=== PATIENT | female | born 1940 | race Hispanic/Latino ===

== ENCOUNTER 2017-03-18 10:28 | Outpatient (CLI) | payer MEDICARE ==
--- NOTE | 2017-03-18 15:56 | Mammography Report ---
BILATERAL DIGITAL AUGMENTED SCREENING MAMMOGRAM with CAD: 03/18/17 10:28:00 CLINICAL: Routine screening. Breast cancer survivor status post left partial mastectomy and right breast implant augmentation. COMPARISON:03/16/16 FINDINGS: Screening views with and without implant displacement demonstrate a relatively fatty breast with scattered fibroglandular densities. The left breast is also fatty with scattered fibroglandular densities. No mass, architectural distortion or suspicious calcifications. Intact right subglandular implant. IMPRESSION: No mammographic evidence of malignancy. BI-RADS CATEGORY: 2 -- Benign RECOMMENDATION: Routine mammographic screening in one year. ACR BI-RADS MAMMOGRAPHIC CODES: 0 = Needs additional imaging evaluation; 1 = Negative; 2 = Benign; 3 = Probably benign; 4 = Suspicious; 5 = Malignant; 6 = Known biopsy-proven malignancy COMMENT: 1. Dense breast tissue, i.e., adenosis, fibrocystic changes, etc., may obscure an underlying neoplasm. 2. Approximately 10% of cancers are not detected with mammography. 3. A negative mammography report should not delay biopsy if a clinically suspicious mass is present. COMMENT: Patient follow-up letters are generated via our [employer] application.
== END 2017-03-18 10:29 | disposition home or self-care (01) ==
LOC: SPVWC 10:28
DX: Z12.31 Encounter for screening mammogram for malignant neoplasm of breast (principal); Z90.12 Acquired absence of left breast and nipple; Z98.82 Breast implant status
CPT/HCPCS: 77067; G0202

== ENCOUNTER 2018-03-21 10:48 | Outpatient (CLI) | payer MEDICARE ==
--- NOTE | 2018-03-21 15:59 | Mammography Report ---
BILATERAL DIGITAL AUGMENTED SCREENING MAMMOGRAM with CAD: 03/21/18 10:48:00 CLINICAL: History of breast cancer status post left partial mastectomy and status post right implant augmentation. COMPARISON:03/18/17 FINDINGS: Screening views with and without implant displacement of the right breast demonstrate a heterogeneously dense breast, which may obscure small masses. Intact subglandular right implant. The left breast is mostly fatty stable benign central posterior scar. No mass, architectural distortion or suspicious calcifications. IMPRESSION: No mammographic evidence of malignancy. BI-RADS CATEGORY: 2 -- Benign RECOMMENDATION: Routine mammographic screening in one year. ACR BI-RADS MAMMOGRAPHIC CODES: 0 = Needs additional imaging evaluation; 1 = Negative; 2 = Benign; 3 = Probably benign; 4 = Suspicious; 5 = Malignant; 6 = Known biopsy-proven malignancy COMMENT: 1. Dense breast tissue, i.e., adenosis, fibrocystic changes, etc., may obscure an underlying neoplasm. 2. Approximately 10% of cancers are not detected with mammography. 3. A negative mammography report should not delay biopsy if a clinically suspicious mass is present. COMMENT: Patient follow-up letters are generated via our [employer] application.
== END 2018-03-21 10:49 | disposition home or self-care (01) ==
LOC: SPVWC 10:48
DX: Z12.31 Encounter for screening mammogram for malignant neoplasm of breast (principal)
CPT/HCPCS: 77067

== ENCOUNTER 2019-03-22 11:04 | Outpatient (CLI) | payer MEDICARE ==
--- NOTE | 2019-03-22 13:13 | Mammography Report ---
DIGITAL SCREENING MAMMOGRAM WITH AUGMENTATION, WITH CAD, 03/22/2019 INDICATION: Screening. History of breast cancer status post left partial mastectomy. TECHNIQUE: Digital bilateral 2D mammography was obtained in the craniocaudal and mediolateral obliqu e projections. Right pushback views were also obtained. Computer-Aided Detection (CAD) analysis was u sed for interpretation of this study. COMPARISON: 03/16/2016 FINDINGS: Breast Density: There are scattered areas of fibroglandular density. There is no evidence of dominant mass, suspicious calcifications or architectural distortion in eithe r breast. There is a right silicone prepectoral breast implant present, unchanged in appearance. Post lumpectomy changes are again noted in the left breast. Overall, there has been no interval change in the appearance of the mammogram. IMPRESSION: No evidence of malignancy. BI-RADS Category 2: Benign. No mammographic evidence of malignancy. Recommend routine screening ma mmography in one year. A "normal" or negative report should not discourage follow up or biopsy of a clinically significant f inding. A written summary of these findings will be mailed to the patient. The patient will be entered into a mammography reporting system which will generate a reminder letter for the patient's next appointmen t at the appropriate interval. The [employer] recommends yearly mammograms starting at age 40 and continuing as l ephraim as a woman is in good health. Breast MRI is recommended for women with an approximate 20-25% or greater lifetime risk of breast cancer, including women with a strong family history of breast or ova saima cancer or who have been treated for Hodgkin's disease. Signer Name: Lauren Pond MD Signed: 03/22/2019 1:08 PM Workstation Name: [id number]
== END 2019-03-22 11:05 | disposition home or self-care (01) ==
LOC: SPVWC 11:04
PROVIDERS: ATTEND Family Medicine
DX: Z12.31 Encounter for screening mammogram for malignant neoplasm of breast (principal)
CPT/HCPCS: 77067

== ENCOUNTER 2020-03-26 10:21 | Outpatient (CLI) | payer MEDICARE ==
--- NOTE | 2020-03-26 13:20 | Mammography Report ---
BILATERAL DIGITAL SCREENING MAMMOGRAM WITH CAD HISTORY: Screening mammogram, status post left breast lumpectomy. TECHNIQUE: Routine digital mammographic imaging performed. This examination was interpreted with crystal shankar benefit of Computer-aided Detection analysis. COMPARISON: 03/22/2019, 03/21/2018, 03/18/2017, 03/16/2016, 03/15/2015. FINDINGS: Breast Density: scattered fibroglandular appearance of the breast tissue. Digital CC and MLO views demonstrate stable lumpectomy changes in the posterior left breast. Prepecto ral silicone implant is again noted within the right breast. No suspicious findings within either br east. IMPRESSION: No mammographic evidence of malignancy. If the clinical examination remains stable, recommend bilate ral mammogram in approximately one year. BIRADS 2: Benign Finding(s). FURTHER INFORMATION: According to the [employer], yearly mammograms are recommend ed starting at age 40 and continuing as long as a woman is in good health. Clinical Breast Exams shou ld be part of a periodic health exam-about every 3 years for women in their 20s and 30s and every yea r for women 40 and over. Breast self exam is an option for women starting in their 20s. Any breast ch sofie noted on a breast self exam should be reported promptly to the patient's healthcare provider. Br east MRI is recommended for women with an approximately 20-25% or greater lifetime risk of breast can cer, including women with a strong family history of breast or ovarian cancer and women who have been treated for Hodgkin's disease. A negative Mammography report should not discourage follow up or biopsy of a clinically significant f inding and/or abnormality. Dense breast tissue may obscure small neoplasms. The patient will be entered into a reminder system with a target due date for the next screening mamm ogram. Signer Name: Humza Chance MD Signed: 03/26/2020 1:15 PM Workstation Name: [id number]
== END 2020-03-26 10:22 | disposition home or self-care (01) ==
LOC: SPVWC 10:21
PROVIDERS: ATTEND Family Medicine
DX: Z12.31 Encounter for screening mammogram for malignant neoplasm of breast (principal)
CPT/HCPCS: 77066; 77067; A4648

== ENCOUNTER 2021-04-11 10:36 | Outpatient (CLI) | payer MEDICARE, BC | END 2021-04-11 10:37 | disposition home or self-care (01) | LOC: SPVWC 10:36 | PROVIDERS: ATTEND Family Medicine | DX: Z12.31 Encounter for screening mammogram for malignant neoplasm of breast (principal) | CPT/HCPCS: 77067 ==

== ENCOUNTER 2022-05-05 14:58 | Outpatient (CLI) | payer MEDICARE, BC ==
--- NOTE | 2022-05-06 10:40 | Mammography Report ---
DIGITAL SCREENING MAMMOGRAM WITH CAD, 05/05/2022 CLINICAL INFORMATION / INDICATION: Routine screening mammography. TECHNIQUE: Digital bilateral 2D mammography was obtained in the craniocaudal and mediolateral obliqu e projections. This examination was interpreted with the benefit of Computer-Aided Detection analysis . COMPARISON: 04/11/2021 FINDINGS: Breast Density: There are scattered areas of fibroglandular density. No dominant mass, suspicious calcifications, or architectural distortion in either breast. Right breast subpectoral silicone implant appears intact. Stable postoperative changes of the left br east. Stable diffuse bilateral calcifications with benign morphology and distribution. No suspicious change since the prior exam. IMPRESSION: No mammographic evidence of malignancy. Follow up recommendation: Routine yearly screening mammogram. BI-RADS Category 2: BENIGN. A "normal" or negative report should not discourage follow up or biopsy of a clinically significant f inding. A written summary of these findings will be mailed to the patient. The patient will be entered into a mammography reporting system which will generate a reminder letter for the patient's next appointmen t at the appropriate interval. The [employer] recommends yearly mammograms starting at age 40 and continuing as l ephraim as a woman is in good health. Breast MRI is recommended for women with an approximate 20-25% or greater lifetime risk of breast cancer, including women with a strong family history of breast or ova saima cancer or who have been treated for Hodgkin's disease. Signer Name: Bear Torres MD Signed: 05/06/2022 10:36 AM Workstation Name: [id number]
== END 2022-05-05 14:59 | disposition home or self-care (01) ==
LOC: SPVWC 14:58
PROVIDERS: ATTEND Family Medicine
DX: Z12.31 Encounter for screening mammogram for malignant neoplasm of breast (principal)
CPT/HCPCS: 77067